=== PATIENT | female | born 1945 | race Caucasian/White ===

== ENCOUNTER 2017-12-03 09:44 | Inpatient (IN) | payer MEDICARE, MEDICAID ==
[~2017-12-03] VITALS: Ht 152.4 cm; Wt 87.1 kg
[~2017-12-03 09:44] MED LIST: ACIDOPHILUS1 EAC3 PO; ASPIR 8181 MG PO; ASPIRIN325 PO; ATIVAN0.5 MG PO; AUGMENTIN 500-1 EACH PO; CALMOSEPTINE O3.5 GM TP; CARDIZEM CD120 MG PO; COZAAR 50 MG TA50 M2 PO; DOXYCYCLINE 10100 MG PO; FOSAMAX 70 MG T70 MG PO; GLUCOSAMINE HC500 MG PO; HYDROCODONE-AP1 EAC6 PO; IBUPROFEN 200200 M1 PO; LABETALOL 100100 MG PO; LASIX 40 MG TAB40 M2 PO; LORATADINE10 M1 PO; MELATONIN3 MG PO; MINOCIN100 MG PO; MULTI VITAMIN1 EACH PO; NYAMYC15 GM TOP; PEPCID20 MG PO; PLAVIX 75 MG TA75 M1 PO; SYNTHROID100 MC1 PO; TESSALON PERLE100 MG PO; TRAMADOL 50 MG50 MG PO; TYLENOL325 MG PO; ZINC OXIDE56.7 GM TOP
[2017-12-03 09:46] VITALS: BP 151/84
[2017-12-03 10:06] LABS: HEMATOCRIT 37.6 % (37.0-47.0); HEMOGLOBIN 11.9 gm/dL (12.0-15.0); MCH 25.8 pg (26.0-34.0); MCHC 31.7 g/dL (28.0-37.0); MCV 81.3 fL (80.0-100.0); MPV 7.9 fl. (7.2-11.1); NUCLEATED RBCS 0 /100WBC; PLATELET COUNT* 331 thou/uL (150-400); RBC 4.63 mil/uL (4.20-5.00); RDW-CV 17.4 % (10.5-14.5)
[2017-12-03 10:15] LABS: CREATININE 0.8 mg/dL (0.6-1.3)
[2017-12-03 10:16] LABS: APTT 34.8 Seconds (25.0-31.3); INR 1.2; PROTIME 11.3 Seconds (9.20-11.50)
[2017-12-03 10:17] LABS: POTASSIUM 2.8 mmol/L (3.5-5.1)
[2017-12-03 10:19] LABS: ALBUMIN 2.3 g/dL (3.4-5.0); TOTAL BILIRUBIN 0.4 mg/dL (<0.1-1.0); TOTAL PROTEIN 7.6 g/dL (6.4-8.2)
[2017-12-03 10:36] LABS: ABSOLUTE LYMPHOCYTES 0.9 thou/uL (0.8-5.3); ABSOLUTE MONOCYTES 1.2 thou/uL (0.0-1.2); ABSOLUTE NEUTROPHILS 10.9 thou/uL (1.6-8.1); ANISOCYTOSIS 1+; OVALOCYTES Occasional; PLATELET ESTIMATE ADEQUATE; POIKILOCYTOSIS 1+
[2017-12-03 12:45] VITALS: BP 125/86
[2017-12-03 13:35] VITALS: BP 140/78
--- NOTE | 2017-12-03 15:11 | EKG ---
[place] [address] ELECTROCARDIOGRAM REPORT Name: CHEPE COLON Room: [address] ADM IN [facility]#: [id number] Admission: 12/03/17 Attend Phys: Jesu Araujo MD Discharge: Date of : 43 Report #: [id number] THIS REPORT FOR: //name// [facility] ED Test Date: 2017-12-03 Test Time: 10:02:08 Pat Name: CHEPE COLON Department: Room: [facility] Gender: F Discharge Rn: ALEXIS Mosher : 1945 Requested By: Denys Remy Order Number: [id number] MD: Juma Benítez Measurements Intervals [place] Rate: 86 P: -5 ND: 178 QRS: -4 QRSD: 103 T: 26 QT: 411 QTc: 492 Interpretive Statements Sinus rhythm Atrial premature complex anterior infarct, old Compared to ECG 09/04/2016 23:51:52 Atrial premature complex(es) now present Electronically Signed On 12-03-2017 15:11:33 CDT by Juma Benítez [email or web address] <ELECTRONICALLY SIGNED> By: Juma Benítez MD, FACC 12/03/17 1511 1002 1002 Juma Benítez MD, [facility] /EPI
[2017-12-03 16:12] VITALS: BP 127/48
--- NOTE | 2017-12-03 18:32 | NUR ---
PATIENT ARRIVED FROM ER THIS AFTERNOON. PATIENT SETTLED TO ROOM AND HISTORY, ASSESSMENT AND VITALS COMPLETED AND DOCUMENTED. PHOTOS TAKEN OF CELLULITIS. PATIENT HAS COMPLAINTS OF PAIN, TREATED ADEQUATELY WITH MEDICATION AND REPOSITIONING. PATIENT HAS GOOD APPETITE. PATIENT DENIES ANY NEEDS AT THIS TIME. CALL LIGHT WITHIN REACH. WILL CONTINUE TO MONITOR.
[2017-12-03 19:35] VITALS: BP 114/64
[2017-12-04 04:42] LABS: ABSOLUTE EOSINOPHILS 0.1 thou/uL (0.0-0.7); ABSOLUTE LYMPHOCYTES 1.1 thou/uL (0.8-5.3); ABSOLUTE NEUTROPHILS 6.3 thou/uL (1.6-8.1); BASOPHILS 0.6 %; EOSINOPHILS 1.6 %; HEMATOCRIT 29.5 % (37.0-47.0); LYMPHOCYTES 12.9 %; MCH 26.4 pg (26.0-34.0); MCHC 33.1 g/dL (28.0-37.0); MCV 79.9 fL (80.0-100.0); MONOCYTES 11.1 %; MPV 8.2 fl. (7.2-11.1); NUCLEATED RBCS 0 /100WBC; PLATELET COUNT* 289 thou/uL (150-400); POLYS 73.8 %; RBC 3.69 mil/uL (4.20-5.00); RDW-CV 16.9 % (10.5-14.5); WBC 8.6 thou/uL (4.0-11.0)
[2017-12-04 05:03] LABS: HEMOGLOBIN 9.8 gm/dL (12.0-15.0)
[2017-12-04 05:06] LABS: CALCIUM 8.5 mg/dL (8.5-10.1); CREATININE 0.7 mg/dL (0.6-1.3); POTASSIUM 3.7 mmol/L (3.5-5.1)
--- NOTE | 2017-12-04 05:16 | NUR ---
ASSESSMENT COMPLETE. PT SLEPT THROUGH THE NIGHT WIHTOUT ANY CONCERNS. PT DENIES NEED FOR PAIN MEDICATION AT THIS TIME. PT TURNED Q2 FOR SKIN INTEGRITY. BLE ELEVATED WITH PILLOWS. PT INCONT OF BOWEL AND BLADDER. K+ REPLACED AND IS NOW 3.7. PT IS ON ROOM AIR WITH ADEQAUTE SATS. IV IN LEFT AC, SALINE LOCKED AND FLUSHES WITHOUT DIFFICULTY. SEE ASSESSMENT AND VITALS FOR OTHER DETAILS. CALL LIGHT WITHIN REACH, WILL CONTINUE PLAN OF CARE
[2017-12-04 07:50] VITALS: BP 110/54
--- NOTE | 2017-12-04 10:26 | NUR ---
SW met with pt to complete initial assessment, introduce self, and SW role. Pt alert, oriented, pleasant. Pt reports she is feeling better today. Pt lives at [facility] and pt says that she loves living there. Pt said she has a wc and everything she would need there. SW called and spoke with Verena at [facility] who can accept pt back when pt ready to dc. SW to continue to follow to assist with safe dc planning.
--- NOTE | 2017-12-04 13:07 | CON ---
[address] [address] CONSULTATION Name: CHEPE COLON Room: [address] IN [facility].#: [id number] Admission: 12/03/17 Attend Phys: Jesu Araujo MD Discharge: Date of : 43 Report #: [id number] THIS REPORT FOR: //name// CC: Jesu Mcgarry DATE OF SERVICE: 12/03/2017 INFECTIOUS DISEASE CONSULTATION ATTENDING PHYSICIAN: Jesu Araujo M.D. REASON FOR EVALUATION: Right lower extremity inflammatory eruption, likely a component of skin and soft tissue infection with cellulitis. HISTORY OF PRESENT ILLNESS: Chart reviewed, patient examined. This is a 72-year-old whom I have met previously and admitted, has bilateral lower extremity venous stasis insufficiency complicated by dermatitis. She has certainly decreased mobility, apparently had onset without antecedent injury of increasing pain associated with the sides, particularly right side, had a newer thigh inflammatory rash, it is not clear if she has had fevers. Did admit to chills and shakes, progressive weakness. Denies significant pulmonary or gastrointestinal related complaints, although has had some anorexia. She was empirically started on vancomycin. ALLERGIES: SULFA AND METOPROLOL. CURRENT MEDICATIONS: Include aspirin, glucosamine, furosemide, levothyroxine, pantoprazole, vancomycin, melatonin, famotidine, rivaroxaban, benzonatate, tramadol. PAST MEDICAL HISTORY: Includes hypertension, cardiomyopathy with history of congestive heart failure, hypothyroidism, reflux, history of venous stasis insufficiency of lower extremities with dermatitis, also perhaps a component of lymphedema, history of lower extremity-related ulcers. SOCIAL HISTORY: Nonsmoker, no ethanol. FAMILY HISTORY: Noncontributory. REVIEW OF SYSTEMS: As above. PHYSICAL EXAMINATION: GENERAL: She appears chronically ill, undernourished, although she is obese, very limited mobility. VITAL SIGNS: Temperature 97.8, pulse 99, respirations 15, blood pressure is [facility] [address] [place] [address] CONSULTATION Name: CHEPE COLON Room: [address]#: [id number] Admission: 12/03/17 Attend Phys: Jesu Araujo MD Discharge: Date of : 43 Report #: [id number] 125/86. SKIN: Warm, dry, no rashes. HEENT: Unremarkable. NECK: Supple. LUNGS: Diminished, otherwise clear. HEART: Regular, has a soft systolic murmur. ABDOMEN: Obese, soft, nontender. EXTREMITIES: Bilateral lower extremities have kind of reddish purple distal lower extremities consistent with venous stasis insufficiency and dermopathy areas, component of cellulitis as well in the thigh in particular that is tender. There are no fluctuations, no bullous lesions. No subcutaneous inflammatory masses. GENITOURINARY: Deferred. RECTAL: Deferred. LABORATORY DATA: Venous Doppler of lower extremity showed no evidence of DVT bilaterally. Lactic acid 1.6. White count of 13.0, H and H 11.9 and 37.6, platelets of 331. Electrolytes: Sodium 141, potassium 2.8, chloride 100, bicarbonate is 33, BUN and creatinine 14 and 0.8, anion gap of 8. LFTs unremarkable for an elevated alkaline phosphatase of 127, total protein 76, albumin of 2.3, estimated GFR of 70. PT of 1.3, INR of 1.2. ASSESSMENT: Lower extremity inflammatory eruption, likely multifactorial including skin and soft tissue infection, specifically cellulitis. PLAN: We will continue vancomycin and elevation; at this point, I think given the severity of the pain, it is unlikely she can tolerate compression which she was certain as well. We will see if we can improve the overall degree of inflammation. I did at some point add compression, go and do arterial studies in the interim. <ELECTRONICALLY SIGNED> By: Waylon Alvares MD 12/04/17 1307 1528 1751Jojosé miguel Alvares MD /nt
[2017-12-04 16:14] VITALS: BP 139/73
--- NOTE | 2017-12-04 18:35 | NUR ---
PATIENT RESTING IN BED. PATIENT REPOSITIONED IN BED. BLE ARE EDEMATOUS AND RED, ELEVATED ON PILLOWS. PATIENT HAS HAD COMPLAINTS OF PAIN X 1 TREATED ADEQUATELY WITH TRAMADOL. PATIENT HAS FAIR APPETITE. NEW IV PALCED THIS EVENING. PATIENT DENIES ANY NEEDS AT THIS TIME. CALL LIGHT WITHIN REACH. WILL CONTINUE TO MONITOR.
[2017-12-04 20:00] VITALS: BP 106/51
--- NOTE | 2017-12-05 05:06 | NUR ---
PT SLEPT AT INTERVALS DURING THE NIGHT, IV VANC GIVEN, PLEASANT, PRN PAIN MEDS PER REQUEST, RIGHT THIGH RED AND WARM, PLEASANT, TURNED, URINARY INCONTINENCE, CALL LIGHT IN REACH, BED ALARM ON FOR SAFETY, WILL CONTINUE TO MONITOR
[2017-12-05 09:15] VITALS: BP 102/45
[2017-12-05 11:12] VITALS: BP 102/45
--- NOTE | 2017-12-05 11:13 | NUR ---
Pt to dc home to [facility] today. JUAN called [facility] and arranged for ride at 1300. JUAN faxed final orders and med list to [facility] fax number [phone]. Pt nurse aware. No other needs expressed.
[2017-12-05 12:20] VITALS: BP 102/45
[2017-12-05] MEDS ORDERED: XARELTO15 MG PO (12:24)
[2017-12-05 13:20] VITALS: BP 102/45
--- NOTE | 2017-12-05 13:22 | NUR ---
PATIENT HAS BEEN ALERT AND ORIENTED TIMES 3 TODAY VERY PLEASANT. NO COMPLAINTS OF ANY PAIN TODAY. VITAL SIGNS STABLE ON ROOM AIR. PATIENT IS BEING DISCAHRGED BACK TO THE CARE HOME TODAY. PHOTOS TAKEN AND DISCHARGE INSTRUCTIONS GIVEN TO JOB CHANGE CREW MEMBER.
== END 2017-12-05 13:25 | DRG 872 ==
LOC: M.ERS 09:44 → M.3W 11:18 → M.TBA-ER 11:18 → M.3W 13:20
PROVIDERS: Family Medicine; ADMIT Internal Medicine
DX: A41.9 Sepsis, unspecified organism (principal); L03.115 Cellulitis of right lower limb; I82.5Y2 Chronic embolism and thrombosis of unspecified deep veins of left proximal lower extremity; E44.1 Mild protein-calorie malnutrition; I42.9 Cardiomyopathy, unspecified; I50.9 Heart failure, unspecified; E03.9 Hypothyroidism, unspecified; I89.0 Lymphedema, not elsewhere classified; E87.6 Hypokalemia; E66.01 Morbid (severe) obesity due to excess calories; E88.09 Other disorders of plasma-protein metabolism, not elsewhere classified; K21.9 Gastro-esophageal reflux disease without esophagitis; Z88.2 Allergy status to sulfonamides; Z88.8 Allergy status to other drugs, medicaments and biological substances; Z68.37 Body mass index [BMI] 37.0-37.9, adult; Z79.82 Long term (current) use of aspirin; Z79.899 Other long term (current) drug therapy; Z79.01 Long term (current) use of anticoagulants

== ENCOUNTER 2018-03-20 11:30 | Inpatient (IN) | payer MEDICARE, MEDICAID ==
[~2018-03-20] VITALS: Ht 160 cm; Wt 93.0 kg
[~2018-03-20 11:30] MED LIST changes: +XARELTO15 MG PO
[2018-03-20 11:31] VITALS: BP 109/73
[2018-03-20] MEDS ORDERED: VITAMIN A & D113 G1 TOP (11:34)
[2018-03-20 12:02] LABS: ABSOLUTE EOSINOPHILS 0.1 thou/uL (0.0-0.7); ABSOLUTE MONOCYTES 0.7 thou/uL (0.0-1.2); ABSOLUTE NEUTROPHILS 5.1 thou/uL (1.6-8.1); BASOPHILS 0.7 %; EOSINOPHILS 1.4 %; HEMATOCRIT 22.4 % (37.0-47.0); HEMOGLOBIN 7.2 gm/dL (12.0-15.0); LYMPHOCYTES 13.8 %; MCH 27.1 pg (26.0-34.0); MCV 84.6 fL (80.0-100.0); MONOCYTES 10.6 %; MPV 7.5 fl. (7.2-11.1); NUCLEATED RBCS 0 /100WBC; PLATELET COUNT* 459 thou/uL (150-400); POLYS 73.5 %; RBC 2.65 mil/uL (4.20-5.00); RDW-CV 19.7 % (10.5-14.5); WBC 6.9 thou/uL (4.0-11.0)
[2018-03-20 12:08] LABS: CALCIUM 8.3 mg/dL (8.5-10.1); CREATININE 0.6 mg/dL (0.6-1.3); POTASSIUM 3.8 mmol/L (3.5-5.1)
[2018-03-20 12:10] LABS: APTT 46.5 Seconds (25.0-31.3); INR 1.4; PROTIME 13.2 Seconds (9.20-11.50)
[2018-03-20 12:13] LABS: ALBUMIN 2.4 g/dL (3.4-5.0)
--- NOTE | 2018-03-20 16:08 | NUR ---
RECEIVED REPORT FOR E.D. PER RILEY AT 1602. PT RESTING IN E.D. WITH NEICE/DPOA. PT ACUTE BILATERALY LEG EDEMA AND DX. OF ANEMIA. WAITING ON PT TRANSFER AT THIS TIME.
--- NOTE | 2018-03-20 16:26 | EKG ---
[place] [address] ELECTROCARDIOGRAM REPORT Name: CHEPE COLON Room: [address] IN [facility]#: [id number] Admission: 03/20/18 Attend Phys: Blue Roman MD Discharge: Date of : 43 Report #: [id number] THIS REPORT FOR: //name// [facility] ED Test Date: 2018-03-20 Test Time: 12:01:17 Pat Name: CHEPE COLON Department: Room: Gender: Inside Sales Lead: Vidhi NELSON : 1945 Requested By: Keke Chow Order Number: [id number] MD: Juma Benítez Measurements Intervals [place] Rate: 73 P: 21 AR: 169 QRS: -9 QRSD: 107 T: 23 QT: 420 QTc: 463 Interpretive Statements Sinus rhythm poor r wave progression consider Inferior infarct, old Compared to ECG 12/03/2017 10:02:08 Atrial premature complex(es) no longer present Myocardial infarct finding still present Electronically Signed On 03-20-2018 16:25:53 CDT by Juma Benítez [email or web address] <ELECTRONICALLY SIGNED> By: Juma Benítez MD, [facility] 03/20/18 1625 1201 1201 Juma Benítez MD, [facility] /EPI
[2018-03-20 16:32] VITALS: BP 105/71
[2018-03-20 17:00] VITALS: BP 145/77
--- NOTE | 2018-03-20 20:30 | NUR ---
REPORT TO AUTOMOTIVE MECHANICAL ENGINEER FOR CONTINUED CARES. PT IN BED, BED IN LOW LOCKED POSITION. VSS. Q2 TURNS COMPLETED. A&O X4, SOMETIMES FORGETFUL, HRRR PER AUSCULTATION, LCTAB, PERRLA, AFEBRILE. PICTURES OF LEG WOUNDS COMPLETED AND IN CHART. BILATERAL LE EDEMA, PT NON AMBULATORY, WHEELCHAIR AT SNF. DNR. LAC 18 GAUGE IV PATENT TO FLUSH. PT ARRIVED TO FLOOR AT 1628, ADMISSION COMPLETED. HOURLY ROUNDING COMPLETED. PT USES BEDPAN AT THIS TIME.
[2018-03-21 00:24] VITALS: BP 111/44
[2018-03-21 04:54] LABS: HEMOGLOBIN 5.8 gm/dL (12.0-15.0)
[2018-03-21 04:56] LABS: HEMATOCRIT 18.4 % (37.0-47.0)
--- NOTE | 2018-03-21 05:09 | NUR ---
PT SLEPT SOUNDLY DURING THE NIGHT, PT TURNED Q2 HOURS, URINARY INCONTINENCE, ROOM AIR, LEFT LEG KALINA WRAPPED ORDERED AND BLE ELEVATED ON PILLOWS, DRSG REMAINS C/D/I TO RLE, PT PLEASANT, PRN TYLENOL AT HS, CALL LIGHT IN REACH, BED ALARM ON FOR SAFETY, WILL CONTINUE TO MONITOR
[2018-03-21 05:31] LABS: HEMATOCRIT 19.9 % (37.0-47.0); HEMOGLOBIN 6.2 gm/dL (12.0-15.0)
[2018-03-21 06:47] VITALS: BP 116/51; BP 117/59; BP 121/61
[2018-03-21 07:55] VITALS: BP 121/61
--- NOTE | 2018-03-21 10:17 | NUR ---
MET WITH PT TO DISCUSS HOME SITUATION/DC PLANNING. 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 PLANS TO RETURN AT DC. PT IS MOSTLY W/C BOUND. COPY OF OUTSIDE DNR TO CHART. NIECE FLORES ARGUELLO LISTED DPOA. WILL FOLLOW [facility] [phone] FAX [phone]
[2018-03-21 16:36] VITALS: BP 112/49
--- NOTE | 2018-03-21 17:52 | NUR ---
PATIENT HAS BEEN A/O X 4 THIS SHIFT. MEDICATED FOR LEFT LEG PAIN X 1 THIS AM WITH GOOD RELIEF. IV SALINE LOCKED, TOLERATED BLOOD TRANSFUSION THIS AM WITHOUT ANY ADVERSE REACTIONS. PATIENT TURNED EVERY 2 HOURS AND ALAINA-CARE PROVIDED WITH EACH INCONTINENCE EPISODE. DRESSING TO RIGHT LOWER LEG INTACT, REFUSED DRESSING CHANGE. KALINA WRAP CONTINUES TO LEFT THIGH. APPETITE GOOD. TO HAVE REPEAT LABS IN AM. HOURLY ROUNDING COMPLETED. CALL LIGHT WITHIN REACH. WILL CONTINUE WITH PLAN OF CARE.
[2018-03-21 20:30] VITALS: BP 114/49
[2018-03-22 04:04] LABS: MCH 27.3 pg (26.0-34.0); MCHC 31.7 g/dL (28.0-37.0); MCV 86.1 fL (80.0-100.0); MPV 7.6 fl. (7.2-11.1); RBC 2.28 mil/uL (4.20-5.00); RDW-CV 19.5 % (10.5-14.5); WBC 5.6 thou/uL (4.0-11.0)
[2018-03-22 04:32] LABS: HEMOGLOBIN 6.2 gm/dL (12.0-15.0)
[2018-03-22 04:33] LABS: HEMATOCRIT 19.6 % (37.0-47.0)
[2018-03-22 06:46] VITALS: BP 118/51; BP 126/55; BP 131/60; BP 137/65
[2018-03-22 08:00] VITALS: BP 137/65
--- NOTE | 2018-03-22 08:13 | NUR ---
Alert and oriented x 4 but withdrawn. She is incontinent of urine frquently. She has been turned every 2 hours. Vitals stable. Pain med x 1. This am critical hemoglobin called and orders recieved. She has slept well.
[2018-03-22 10:44] LABS: HEMATOCRIT 24.8 % (37.0-47.0); HEMOGLOBIN 7.9 gm/dL (12.0-15.0)
[2018-03-22 16:00] VITALS: BP 115/55
[2018-03-22 16:04] LABS: HEMOGLOBIN 7.7 gm/dL (12.0-15.0)
--- NOTE | 2018-03-22 18:24 | NUR ---
PATIENT HAS BEEN A/O X 4 THIS SHIFT, FORGETFUL AT TIMES. PATIENT RECEIVED 1 UNIT OF PRBC THIS SHIFT, REPEAT H/H STABLE. HEMOGLOBIN TRENDING UP. PATIENT TITRATED BACK TO ROOM AIR. PATIENT INCONTINENT OF URINE. TURNED EVERY 2 HOURS AND HEELS ELEVATED. PATIENT'S DRESSING TO RLE CHANGED AND WEEKLY PICTURES OBTAINED. PATIENT'S KALINA WRAP REAPPLIED TO LEFT LEG TO HELP WITH SWELLING. PATIENT HOPEFUL TO BE DISCHARGED SOON. HOURLY ROUNDING COMPLETED. CALL LIGHT WITHIN REACH. WILL CONTINUE WITH PLAN OF CARE.
[2018-03-22 20:00] VITALS: BP 124/50
[2018-03-23 04:21] LABS: HEMATOCRIT 26.2 % (37.0-47.0); HEMOGLOBIN 8.4 gm/dL (12.0-15.0); MCH 27.9 pg (26.0-34.0); MCV 87.1 fL (80.0-100.0); MPV 7.6 fl. (7.2-11.1); RDW-CV 19.1 % (10.5-14.5); WBC 5.5 thou/uL (4.0-11.0)
[2018-03-23 04:39] LABS: CALCIUM 8.4 mg/dL (8.5-10.1); CREATININE 0.6 mg/dL (0.6-1.3); MAGNESIUM 2.1 mg/dL (1.8-2.4)
--- NOTE | 2018-03-23 06:56 | NUR ---
Alert and oriented x 4. She has gauze dressing that is dry and intact on RLE. LLE has acewrap dressing dry and intact. She's been turned every 2 hours and she's incontinent of bowel and bladder. She had pain meds x 2. She slept well.
[2018-03-23 08:00] VITALS: BP 140/69
--- NOTE | 2018-03-23 10:56 | NUR ---
Pt to dc home to [facility] today. JUAN called and spoke with [facility] [phone] who is prepared to accept pt home. JUAN faxed dc orders/summary to [facility] at fax [phone]. Transportation scheduled for 14:00. JUAN called pt andrea Rivas Juventino at [phone] who did not answer so JUAN left a detailed message regarding pt dc and encouraged call back with any questions or needs.
[2018-03-23 11:36] VITALS: BP 140/69
--- NOTE | 2018-03-23 14:18 | NUR ---
DISCHARGE NOTE - PT DC'ED BACK TO [facility]. REPORT CALLED TO LUIS LAMAS. NO QUESTIONS. BELONGINGS AND GLASSES SENT WITH PT. CHART COPIED AND SENT WITH TRANSPORTER.
== END 2018-03-23 14:17 | DRG 605 ==
LOC: M.ERS 11:30 → M.ORTHSURG 15:06 → M.TBA-ER 15:06 → M.ORTHSURG 17:03
PROVIDERS: Nurse Practitioner Family; ADMIT Internal Medicine
PROC: 30233N1 Transfusion of Nonautologous Red Blood Cells into Peripheral Vein, Percutaneous Approach (ICD-10-PCS; principal; 2018-03-21)
DX: S80.12XA Contusion of left lower leg, initial encounter (principal); D62 Acute posthemorrhagic anemia; I50.32 Chronic diastolic (congestive) heart failure; E44.0 Moderate protein-calorie malnutrition; E03.9 Hypothyroidism, unspecified; K21.9 Gastro-esophageal reflux disease without esophagitis; M81.0 Age-related osteoporosis without current pathological fracture; I87.8 Other specified disorders of veins; E66.9 Obesity, unspecified; Z66 Do not resuscitate; G89.29 Other chronic pain; Z88.2 Allergy status to sulfonamides; Z88.8 Allergy status to other drugs, medicaments and biological substances; Z79.01 Long term (current) use of anticoagulants; Z86.718 Personal history of other venous thrombosis and embolism; Z68.36 Body mass index [BMI] 36.0-36.9, adult; Z79.82 Long term (current) use of aspirin; Z79.899 Other long term (current) drug therapy; X58.XXXA Exposure to other specified factors, initial encounter; Y93.89 Activity, other specified; Y92.89 Other specified places as the place of occurrence of the external cause; Y99.8 Other external cause status

== ENCOUNTER 2018-04-10 07:41 | Inpatient (IN) | payer MEDICARE, MEDICAID ==
[~2018-04-10] VITALS: Ht 157.5 cm; Wt 94.8 kg
[~2018-04-10 07:41] MED LIST changes: +VITAMIN A & D113 G1 TOP
[2018-04-10 07:42] VITALS: BP 103/39
[2018-04-10] MEDS ORDERED: NYAMYC15 GM TOP (07:51)
[2018-04-10] MEDS ORDERED: IRON325 PO (07:52)
[2018-04-10] MEDS ORDERED: TESSALON PERLE100 MG PO (07:53)
[2018-04-10] MEDS ORDERED: SENNA S TABLET1 EACH PO (07:53)
[2018-04-10 08:28] LABS: HEMATOCRIT 27.1 % (37.0-47.0); HEMOGLOBIN 8.5 gm/dL (12.0-15.0); MCH 25.9 pg (26.0-34.0); MCHC 31.3 g/dL (28.0-37.0); MCV 82.9 fL (80.0-100.0); MPV 7.7 fl. (7.2-11.1); NUCLEATED RBCS 0 /100WBC; PLATELET COUNT* 367 thou/uL (150-400); RBC 3.27 mil/uL (4.20-5.00); RDW-CV 19.1 % (10.5-14.5); WBC 8.7 thou/uL (4.0-11.0)
[2018-04-10 08:33] LABS: CALCIUM 8.1 mg/dL (8.5-10.1); CREATININE 0.6 mg/dL (0.6-1.3); POTASSIUM 3.6 mmol/L (3.5-5.1)
[2018-04-10 08:37] LABS: ALBUMIN 1.7 g/dL (3.4-5.0); TOTAL BILIRUBIN 0.3 mg/dL (<0.1-1.0); TOTAL PROTEIN 6.2 g/dL (6.4-8.2)
[2018-04-10 08:53] LABS: ABSOLUTE LYMPHOCYTES 1.5 thou/uL (0.8-5.3); ABSOLUTE MONOCYTES 0.2 thou/uL (0.0-1.2); PLATELET ESTIMATE ADEQUATE
[2018-04-10 08:54] LABS: ANISOCYTOSIS 1+; POIKILOCYTOSIS 1+
[2018-04-10 09:32] VITALS: BP 101/56
[2018-04-10 09:45] VITALS: BP 125/48
--- NOTE | 2018-04-10 16:31 | EKG ---
[place] [address] ELECTROCARDIOGRAM REPORT Name: CHEPE COLON Room: [address] ADM IN [facility]#: [id number] Admission: 04/10/18 Attend Phys: Scott Torres Discharge: Date of : 43 Report #: [id number] THIS REPORT FOR: //name// [facility] ED Test Date: 2018-04-10 Test Time: 08:17:33 Pat Name: CHEPE COLON Department: Room: [facility] Gender: F Developer Prover Upholstering: BAILEE : 1945 Requested By: Tera Thurston Order Number: [id number] MD: Gasper Simmons Measurements Intervals [place] Rate: 72 P: 5 RI: 170 QRS: -14 QRSD: 98 T: 8 QT: 417 QTc: 457 Interpretive Statements Sinus rhythm Immature atrial complexes Inferior infarct, old Baseline wander in lead(s) V1 Compared to ECG 03/20/2018 12:01:17 Poor R-wave progression no longer present Myocardial infarct finding still present Electronically Signed On 04-10-2018 16:31:42 CDT by Gasper Simmons [email or web address] <ELECTRONICALLY SIGNED> By: Gasper Simmons MD, FACC 04/10/18 1631 6 6 Gasper Simmons MD, FAC /EPI
[2018-04-10 17:01] VITALS: BP 141/59
[2018-04-11] VITALS: BP 113/56
[2018-04-11 04:18] LABS: ABSOLUTE EOSINOPHILS 0.2 thou/uL (0.0-0.7); ABSOLUTE LYMPHOCYTES 1.2 thou/uL (0.8-5.3); ABSOLUTE MONOCYTES 0.8 thou/uL (0.0-1.2); ABSOLUTE NEUTROPHILS 4.2 thou/uL (1.6-8.1); BASOPHILS 0.5 %; EOSINOPHILS 2.5 %; HEMATOCRIT 26.6 % (37.0-47.0); HEMOGLOBIN 8.2 gm/dL (12.0-15.0); LYMPHOCYTES 18.4 %; MCH 25.7 pg (26.0-34.0); MCHC 30.9 g/dL (28.0-37.0); MCV 83.2 fL (80.0-100.0); MPV 7.8 fl. (7.2-11.1); NUCLEATED RBCS 0 /100WBC; PLATELET COUNT* 364 thou/uL (150-400); POLYS 66.6 %; RDW-CV 18.9 % (10.5-14.5); WBC 6.3 thou/uL (4.0-11.0)
[2018-04-11 04:24] LABS: CALCIUM 7.8 mg/dL (8.5-10.1); CREATININE 0.6 mg/dL (0.6-1.3); POTASSIUM 3.6 mmol/L (3.5-5.1)
[2018-04-11 12:04] VITALS: BP 155/79
[2018-04-11 16:00] VITALS: BP 103/40
[2018-04-11 20:30] VITALS: BP 126/62
[2018-04-12 05:17] LABS: HEMATOCRIT 26.1 % (37.0-47.0); HEMOGLOBIN 8.2 gm/dL (12.0-15.0); MCH 25.8 pg (26.0-34.0); MCHC 31.6 g/dL (28.0-37.0); MCV 81.7 fL (80.0-100.0); MPV 7.9 fl. (7.2-11.1); RBC 3.19 mil/uL (4.20-5.00); WBC 5.4 thou/uL (4.0-11.0)
[2018-04-12 05:37] LABS: CALCIUM 7.9 mg/dL (8.5-10.1); CREATININE 0.5 mg/dL (0.6-1.3)
[2018-04-12 08:56] VITALS: BP 149/76
[2018-04-12 15:51] VITALS: BP 130/68
[2018-04-12 21:00] VITALS: BP 128/67
[2018-04-13 10:20] VITALS: BP 118/82
[2018-04-13] MEDS ORDERED: AUGMENTIN 875-1 EACH PO (12:25)
[2018-04-13 12:27] VITALS: BP 118/82
[2018-04-13 14:13] VITALS: BP 118/82
== END 2018-04-13 14:32 | DRG 579 ==
LOC: M.ERS 07:41 → M.3W 08:26 → M.TBA-ER 08:26 → M.3W 09:39
PROVIDERS: Emergency Medicine; Internal Medicine; Surgery; ADMIT Internal Medicine
PROC: 0J9M0ZZ Drainage of Left Upper Leg Subcutaneous Tissue and Fascia, Open Approach (ICD-10-PCS; principal; 2018-04-11)
DX: L03.116 Cellulitis of left lower limb (principal); G93.40 Encephalopathy, unspecified; M62.82 Rhabdomyolysis; M86.9 Osteomyelitis, unspecified; G89.29 Other chronic pain; I87.8 Other specified disorders of veins; M46.40 Discitis, unspecified, site unspecified; D64.9 Anemia, unspecified; I11.0 Hypertensive heart disease with heart failure; I50.9 Heart failure, unspecified; K21.9 Gastro-esophageal reflux disease without esophagitis; M81.0 Age-related osteoporosis without current pathological fracture; E03.9 Hypothyroidism, unspecified; F03.90 Unspecified dementia, unspecified severity, without behavioral disturbance, psychotic disturbance, mood disturbance, and anxiety; L02.416 Cutaneous abscess of left lower limb; Z86.718 Personal history of other venous thrombosis and embolism; Z79.01 Long term (current) use of anticoagulants; Z99.3 Dependence on wheelchair; Z79.2 Long term (current) use of antibiotics; Z79.899 Other long term (current) drug therapy; Z79.82 Long term (current) use of aspirin; Z88.2 Allergy status to sulfonamides; Z88.6 Allergy status to analgesic agent; Z91.012 Allergy to eggs; Z91.040 Latex allergy status

== ENCOUNTER 2018-04-23 13:07 | Inpatient (IN) | payer MEDICARE, MEDICAID ==
[~2018-04-23] VITALS: Ht 154.9 cm; Wt 89.8 kg
[~2018-04-23 13:07] MED LIST changes: +AUGMENTIN 875-1 EACH PO; +IRON325 PO; +SENNA S TABLET1 EACH PO
[2018-04-23 13:36] LABS: ABSOLUTE BASOPHILS 0.1 thou/uL (0.0-0.2); ABSOLUTE EOSINOPHILS 0.1 thou/uL (0.0-0.7); ABSOLUTE LYMPHOCYTES 1.4 thou/uL (0.8-5.3); ABSOLUTE MONOCYTES 0.5 thou/uL (0.0-1.2); ABSOLUTE NEUTROPHILS 2.9 thou/uL (1.6-8.1); BASOPHILS 1.2 %; EOSINOPHILS 2.8 %; HEMOGLOBIN 10.8 gm/dL (12.0-15.0); LYMPHOCYTES 28.1 %; MCH 24.9 pg (26.0-34.0); MONOCYTES 10.3 %; MPV 7.3 fl. (7.2-11.1); NUCLEATED RBCS 0 /100WBC; PLATELET COUNT* 358 thou/uL (150-400); POLYS 57.6 %; RBC 4.34 mil/uL (4.20-5.00); RDW-CV 20.2 % (10.5-14.5)
[2018-04-23 13:47] LABS: CALCIUM 8.2 mg/dL (8.5-10.1); CREATININE 0.9 mg/dL (0.6-1.3); POTASSIUM 3.6 mmol/L (3.5-5.1)
[2018-04-23 13:48] LABS: APTT 27.4 Seconds (25.0-31.3); INR 1.1; PROTIME 10.9 Seconds (9.20-11.50)
[2018-04-23 13:52] LABS: ALBUMIN 2.8 g/dL (3.4-5.0); TOTAL BILIRUBIN 0.3 mg/dL (<0.1-1.0)
[2018-04-23 14:04] LABS: URINE BILIRUBIN NEGATIVE (Negative); URINE BLOOD NEGATIVE (Negative); URINE CLARITY CLEAR; URINE COLOR YELLOW; URINE GLUCOSE-RANDOM NEGATIVE (Negative); URINE KETONES NEGATIVE (Negative); URINE LEUKOCYTES-REFLEX NEGATIVE (Negative); URINE NITRITE-REFLEX NEGATIVE (Negative); URINE PROTEIN NEGATIVE (Negative); URINE UROBILINOGEN 0.2 E.U./dl (0.2-1.0)
[2018-04-23 14:05] LABS: ANISOCYTOSIS 2+; PLATELET ESTIMATE ADEQUATE
[2018-04-23] MEDS ORDERED: VITAMINC500 PO (14:08)
[2018-04-23] MEDS ORDERED: TESSALON PERLE100 MG PO ×2 (14:08→14:09)
[2018-04-23] MEDS ORDERED: LINEZOLID600 MG PO (14:09)
[2018-04-23 16:43] VITALS: BP 107/55
[2018-04-23 16:50] VITALS: BP 136/60
--- NOTE | 2018-04-23 17:42 | EKG ---
[place] [address] ELECTROCARDIOGRAM REPORT Name: CHEPE COLON Room: [address] ADM IN [facility]#: [id number] Admission: 04/23/18 Attend Phys: Joanne Hector MD Discharge: Date of : 43 Report #: [id number] THIS REPORT FOR: //name// [facility] ED Test Date: 2018-04-23 Test Time: 15:33:14 Pat Name: CHEPE COLON Department: Room: [facility] Gender: F Information Management Manager: PINKY : 1945 Requested By: Minoo Paulino Order Number: [id number] MD: Juma Benítez Measurements Intervals [place] Rate: 77 P: 1 UT: 194 QRS: 4 QRSD: 105 T: 23 QT: 420 QTc: 476 Interpretive Statements Sinus rhythm Borderline prolonged QT interval Baseline wander in lead(s) I,III,aVL Compared to ECG 04/10/2018 08:17:33 pac's no longer present Electronically Signed On 04-23-2018 17:42:33 CDT by Juma Benítez [email or web address] <ELECTRONICALLY SIGNED> By: Juma Benítez MD, [facility] 04/23/18 1742 1533 1533 Juma Benítez MD, [facility] /EPI
[2018-04-23 19:35] VITALS: BP 130/60
[2018-04-24 04:30] LABS: HEMATOCRIT 27.4 % (37.0-47.0); MCH 25.3 pg (26.0-34.0); MCV 81.7 fL (80.0-100.0); MPV 7.6 fl. (7.2-11.1); RBC 3.35 mil/uL (4.20-5.00); RDW-CV 20.2 % (10.5-14.5); WBC 4.5 thou/uL (4.0-11.0)
[2018-04-24 04:37] LABS: HEMOGLOBIN 8.5 gm/dL (12.0-15.0)
[2018-04-24 04:50] LABS: ALBUMIN 2.1 g/dL (3.4-5.0); CALCIUM 7.3 mg/dL (8.5-10.1); CREATININE 0.6 mg/dL (0.6-1.3); MAGNESIUM 1.8 mg/dL (1.8-2.4); POTASSIUM 3.5 mmol/L (3.5-5.1); TOTAL BILIRUBIN 0.2 mg/dL (<0.1-1.0); TOTAL PROTEIN 5.8 g/dL (6.4-8.2)
[2018-04-24 07:40] VITALS: BP 144/72
[2018-04-24 16:34] VITALS: BP 116/39
[2018-04-25] VITALS: BP 91/32
[2018-04-25 09:03] VITALS: BP 142/52
--- NOTE | 2018-04-25 10:44 | CON ---
[address] [address] CONSULTATION Name: CHEPE COLON Room: [address] IN ..#: [id number] Admission: 04/23/18 Attend Phys: Joanne Hector MD Discharge: Date of : 43 Report #: [id number] THIS REPORT FOR: //name// CC: Joanne Mcgarry DATE OF SERVICE: 04/24/2018 INFECTIOUS DISEASE CONSULTATION ATTENDING SURGEON: Dr. Hector. REASON FOR EVALUATION: Complicated skin and soft tissue infection, lateral aspect of the proximal left lower extremity, probable MRSA related skin and soft tissue infection with abscess. HISTORY OF PRESENT ILLNESS: Chart reviewed, patient examined. This is a 72-year-old whom I am familiar with having seen her in the hospital in 11/2017 for inflammatory eruption involving his right lower extremity. She probably has underlying venous stasis insufficiency with dermatitis. Apparently, she has developed a large hematoma as a result of a fall about mid-March, experienced some bloody purulent drainage, did undergo an incision and drainage of that site. Cultures eventually came back oxacillin-resistant Staph aureus. She was re-admitted yesterday with altered mental status, it is notable she has persistent pain and drainage from the lateral aspect of the left thigh. She was started empirically on therapy with vancomycin. She is somewhat more responsive today. ALLERGIES: LISTED TO TAPE, SULFA, METOPROLOL, AND LATEX. CURRENT MEDICATIONS: Include pantoprazole, ascorbic acid, ferrous sulfate, aspirin, furosemide, vancomycin, levothyroxine, enoxaparin, Lactobacillus, famotidine, tramadol. PAST MEDICAL HISTORY: Hypertension, history of congestive heart failure in a setting of cardiomyopathy, hypothyroidism, reflux, chronic venous stasis insufficiency with dermatitis, osteoporosis, and history of DVT. SOCIAL HISTORY: Nonsmoker, no ethanol. FAMILY HISTORY: Noncontributory. REVIEW OF SYSTEMS: Somewhat limited. She denies significant pulmonary or gastrointestinal related complaints at present. PHYSICAL EXAMINATION: [place] [address] CONSULTATION Name: CHEPE COLON Room: [address] IN [facility]#: [id number] Admission: 04/23/18 Attend Phys: Joanne Hector MD Discharge: Date of : 43 Report #: [id number] GENERAL: She is at least yltgik-go-ypoicbptmv encephalopathic. She does appear chronically ill and undernourished. She may have as noted above, some dementia. VITAL SIGNS: Temperature 99, pulse 82, respirations 18, blood pressure 144/72. NECK: Apparently supple. LUNGS: Diminished breath sounds. HEART: Regular, soft systolic murmur. ABDOMEN: Soft, nontender, nondistended. EXTREMITIES: Left lateral aspect of her thigh is tender. She has got moderate surface inflammation. There is draining sinus as well. I cannot express significant purulence or bloody drainage at this point. LABORATORY DATA: Blood cultures are sterile thus far. CTA PE protocol showed no evidence of infiltrates, could not adequately evaluate for pulmonary embolus, does have cholelithiasis, large gallstone in the neck of the gallbladder. Prealbumin 16. Electrolytes: Sodium 141, potassium 3.5, chloride 109, bicarbonate is 20, BUN and creatinine 14 and 0.6. Albumin of 21, total protein 5.8, estimated GFR of 98. CBC: White count 4.5, H and H 8.5 and 27.4, platelets of 247. Venous Doppler of lower extremity showed no evidence of DVT. Lactic acid 1.4. Chest x-ray: Cardiomegaly with heart failure. Urinalysis, unremarkable. D-dimer elevated at 2.39. ASSESSMENT: Likely skin and soft tissue infection site of previous infected hematoma post-evacuation. There have been repeat blood cultures and no abscess culture. We will go ahead and try to collect a sample, continue vancomycin for now. She apparently is improved from a mental status standpoint based on description of her admission. <ELECTRONICALLY SIGNED> By: Waylon Alvares MD 04/25/18 1044 1107 1854Jojosé miguel Alvares MD /nt
[2018-04-25 16:00] VITALS: BP 140/60
[2018-04-26] VITALS: BP 110/40
[2018-04-26 09:16] VITALS: BP 145/61
[2018-04-26 16:38] VITALS: BP 139/63
[2018-04-27 00:28] VITALS: BP 119/46
[2018-04-27 04:35] LABS: HEMATOCRIT 29.2 % (37.0-47.0); HEMOGLOBIN 9.3 gm/dL (12.0-15.0); MCH 25.4 pg (26.0-34.0); MCHC 31.7 g/dL (28.0-37.0); MCV 80.3 fL (80.0-100.0); MPV 7.6 fl. (7.2-11.1); RBC 3.64 mil/uL (4.20-5.00); RDW-CV 19.8 % (10.5-14.5); WBC 5.8 thou/uL (4.0-11.0)
[2018-04-27 04:48] LABS: CALCIUM 9.1 mg/dL (8.5-10.1); CREATININE 0.6 mg/dL (0.6-1.3); MAGNESIUM 1.9 mg/dL (1.8-2.4); POTASSIUM 3.7 mmol/L (3.5-5.1)
[2018-04-27 08:00] VITALS: BP 118/58
[2018-04-27] MEDS ORDERED: TRAMADOL 50 MG50 MG PO (09:44)
[2018-04-27 16:00] VITALS: BP 127/61
[2018-04-27 19:45] VITALS: BP 147/67
[2018-04-28 08:45] VITALS: BP 122/74
[2018-04-28 11:03] VITALS: BP 122/74
[2018-04-28] MEDS ORDERED: CEFDINIR300 MG PO (11:50)
== END 2018-04-28 16:00 | DRG 602 ==
LOC: M.ERS 13:07 → M.TBA-ER 15:51 → M.3W 15:51
PROVIDERS: Personal Emergency Response Attendant; ADMIT Internal Medicine
DX: L03.116 Cellulitis of left lower limb (principal); G92 Toxic encephalopathy; E44.0 Moderate protein-calorie malnutrition; I42.9 Cardiomyopathy, unspecified; L03.115 Cellulitis of right lower limb; F03.90 Unspecified dementia, unspecified severity, without behavioral disturbance, psychotic disturbance, mood disturbance, and anxiety; I50.9 Heart failure, unspecified; E03.9 Hypothyroidism, unspecified; I87.8 Other specified disorders of veins; L02.416 Cutaneous abscess of left lower limb; B95.62 Methicillin resistant Staphylococcus aureus infection as the cause of diseases classified elsewhere; K21.9 Gastro-esophageal reflux disease without esophagitis; M81.0 Age-related osteoporosis without current pathological fracture; Z86.718 Personal history of other venous thrombosis and embolism; Z79.82 Long term (current) use of aspirin; Z79.899 Other long term (current) drug therapy; Z91.012 Allergy to eggs; Z91.040 Latex allergy status; Z88.2 Allergy status to sulfonamides; Z88.8 Allergy status to other drugs, medicaments and biological substances; Z91.048 Other nonmedicinal substance allergy status

== ENCOUNTER → 2018-05-05 | Outpatient (CLI) | payer MEDICARE, MEDICAID ==
[~2018-05-05] MED LIST changes: +CEFDINIR300 MG PO; +LINEZOLID600 MG PO; +VITAMINC500 PO
== END ==
LOC: M.WC 10:00
DX: L98.491 Non-pressure chronic ulcer of skin of other sites limited to breakdown of skin (principal); E66.01 Morbid (severe) obesity due to excess calories; M81.0 Age-related osteoporosis without current pathological fracture; Z86.718 Personal history of other venous thrombosis and embolism; Z79.82 Long term (current) use of aspirin; Z68.35 Body mass index [BMI] 35.0-35.9, adult

== ENCOUNTER → 2018-05-12 | Outpatient (CLI) | payer MEDICARE, MEDICAID | LOC: M.WC 04:29 | DX: L02.416 Cutaneous abscess of left lower limb (principal); E66.01 Morbid (severe) obesity due to excess calories; M81.0 Age-related osteoporosis without current pathological fracture; Z87.01 Personal history of pneumonia (recurrent); Z86.718 Personal history of other venous thrombosis and embolism; Z68.35 Body mass index [BMI] 35.0-35.9, adult ==

== ENCOUNTER → 2018-05-19 | Outpatient (CLI) | payer MEDICARE, MEDICAID | LOC: M.WC 03:42 | DX: L02.416 Cutaneous abscess of left lower limb (principal); E66.3 Overweight; E66.01 Morbid (severe) obesity due to excess calories; M81.0 Age-related osteoporosis without current pathological fracture; Z87.01 Personal history of pneumonia (recurrent); Z86.718 Personal history of other venous thrombosis and embolism; Z68.35 Body mass index [BMI] 35.0-35.9, adult ==

== ENCOUNTER → 2019-01-15 | Outpatient (CLI) | payer MEDICARE, MEDICAID | LOC: M.RAD 09:36 | DX: R13.12 Dysphagia, oropharyngeal phase (principal) ==

== ENCOUNTER 2020-07-17 20:48 | Inpatient (IN) | payer MEDICARE, MEDICAID ==
[~2020-07-17] VITALS: Ht 157.5 cm; Wt 83.0 kg
[2020-07-17] MEDS ORDERED: HYDROCODON-ACE1 EAC7 (21:43)
[2020-07-17] MEDS ORDERED: PREVACID30 MG (21:43)
[2020-07-17] MEDS ORDERED: JEVITY 1.2 CAL237 ML (21:44)
[2020-07-17] MEDS ORDERED: OYSTER SHELL 51 EACH (21:44)
[2020-07-17] MEDS ORDERED: CIPRO500 M1 PER TUBE (21:45)
[2020-07-17] MEDS ORDERED: VISTARIL 25 MG25 M1 (21:45)
[2020-07-17] MEDS ORDERED: ZINC SULFATE220 MG (21:45)
[2020-07-17 21:53] LABS: ABSOLUTE BASOPHILS 0.1 thou/uL (0.0-0.2); ABSOLUTE EOSINOPHILS 0.1 thou/uL (0.0-0.7); ABSOLUTE LYMPHOCYTES 1.2 thou/uL (0.8-5.3); ABSOLUTE MONOCYTES 0.7 thou/uL (0.0-1.2); ABSOLUTE NEUTROPHILS 4.4 thou/uL (1.6-8.1); BASOPHILS 1.3 %; EOSINOPHILS 0.8 %; HEMATOCRIT 37.8 % (37.0-47.0); HEMOGLOBIN 12.2 gm/dL (12.0-15.0); LYMPHOCYTES 18.9 %; MCH 28.8 pg (26.0-34.0); MCHC 32.3 g/dL (28.0-37.0); MONOCYTES 11.5 %; MPV 8.3 fl. (7.2-11.1); NUCLEATED RBCS 0 /100WBC; PLATELET COUNT* 275 thou/uL (150-400); POLYS 67.5 %; RBC 4.24 mil/uL (4.20-5.00); RDW-CV 14.9 % (10.5-14.5); WBC 6.5 thou/uL (4.0-11.0)
[2020-07-17 21:59] LABS: CALCIUM 8.8 mg/dL (8.5-10.1); CREATININE 0.6 mg/dL (0.6-1.3)
[2020-07-17 22:15] LABS: ALBUMIN 2.2 g/dL (3.4-5.0); TOTAL BILIRUBIN 0.4 mg/dL (<0.1-1.0); TOTAL PROTEIN 6.6 g/dL (6.4-8.2)
[2020-07-18] VITALS (7 sets, daily range): BP systolic 105–123; BP diastolic 44–74
[2020-07-18 02:13] LABS: URINE BILIRUBIN NEGATIVE (Negative); URINE BLOOD NEGATIVE (Negative); URINE CLARITY CLEAR; URINE COLOR YELLOW; URINE GLUCOSE-RANDOM NEGATIVE (Negative); URINE KETONES NEGATIVE (Negative); URINE LEUKOCYTES-REFLEX NEGATIVE (Negative); URINE NITRITE-REFLEX NEGATIVE (Negative); URINE PROTEIN NEGATIVE (Negative)
--- NOTE | 2020-07-18 02:41 | NUR ---
PT BOARDING ASSESSMENT COMPLETED; PT NONVERBAL; SCHAEFER TO DD; PERICARE PROVIDED, NOTED NONBLANCHABLE AREA TO COCCYX, SMALL SOFT STOOL NOTED; PT REPOSITIONED ON L SIDE; COVID PRECAUTIONS MAINTAINED; WILL CONTINUE TO MONITOR.
--- NOTE | 2020-07-18 02:44 | NUR ---
PT WITH PEG TUBE, IRRIGATED WITH 50 ML H2O.
--- NOTE | 2020-07-18 09:36 | EKG ---
[place] [address] ELECTROCARDIOGRAM REPORT Name: CHEPE COLON Room: [address] ADM IN [facility].#: [id number] Admission: 07/17/20 Attend Phys: Albert Gómez Discharge: Date of : 43 Date of Service: 07/17/202105 Report #: [id number] THIS REPORT FOR: //name// [facility] ED Test Date: 2020-07-17 Test Time: 21:06:51 Pat Name: CHEPE COLON Department: Room: [facility] Gender: F Aquatic Scientist: [place] : 1945 Requested By: Kelvin Jackman Order Number: [id number] MD: Gasper Simmons Measurements Intervals [place] Rate: 77 P: -20 NC: 160 QRS: -14 QRSD: 99 T: 11 QT: 400 QTc: 453 Interpretive Statements Sinus rhythm Inferior infarct, old Baseline wander in lead(s) V4 Compared to ECG 04/23/2018 15:33:14 Myocardial infarct finding now present Electronically Signed On 07-18-2020 9:36:38 LAYOUT ARTIST by Gasper Simmons [email or web address] <ELECTRONICALLY SIGNED> By: Gasper Simmons MD, FACC 07/18/2036 05 05 Gasper Simmons MD, FACC /EPI
[2020-07-18 10:47] LABS: ALBUMIN 2.3 g/dL (3.4-5.0); CALCIUM 8.9 mg/dL (8.5-10.1); CREATININE 0.7 mg/dL (0.6-1.3); MAGNESIUM 2.2 mg/dL (1.8-2.4); PHOSPHORUS* 3.4 mg/dL (2.5-4.9); POTASSIUM 4.3 mmol/L (3.5-5.1); TOTAL BILIRUBIN 0.4 mg/dL (<0.1-1.0)
--- NOTE | 2020-07-18 18:05 | NUR ---
RECEIVED REPORT AND ASSUMED CARE OF PT.ADMISSION COMPLETED TO [facility].PT IS NONVERBAL BUT ABLE TO FOLLOW COMMANDS AT TIMES.VSS.IRRIGATING PUMP OPERATOR IN PLACE.ISOLATION MAINTAINED FOR COVID.NEW IV INSERTED IN LEFT FOREARM DUE TO PT PULLING OUT RIGHT HAND IV.WOUND PICTURES TAKEN AND PLACED ON CHART.PT PEG TUBE ARRIVED CLAMPED BUT WITHOUT CAPS, STOPCOCK ADDED TO PEG TUBE FOR MEDICATIONS ADMINISTRATION AND TUBE FEED BOLUSES.PT LEFT RSTING IN BED WITH CALL LIGHT AND FALL PRECAUTIONS IN PLACE.WILL CONTINUE TO MONITOR FOR DURATION OF SHIFT.
[2020-07-19 00:37] VITALS: BP 103/55
[2020-07-19 04:00] VITALS: BP 112/59
--- NOTE | 2020-07-19 04:35 | NUR ---
ASSUMED CARE OF PT AFTER REPORT. PT AWAKE. NONVERBAL. VSS. PHYSICAL ASSESSMENT COMPLETED AND CHARTED. PT ON O2 AT 2L NC. PT TRACING SR/ST/PAC ON TELE. PT TURNED TO SIDES. PT WITH PEG TUBE PATENT & INTACT. PT WITH SCHAEFER TO DD. MAINTAINED ON ENHANCED PRECAUTION-PENDING COVID PCR. FALL PRECAUTIONS IN PLACE. CALL LIGHT WITHIN REACH.
[2020-07-19 05:37] LABS: ABSOLUTE LYMPHOCYTES 1.1 thou/uL (0.8-5.3); ABSOLUTE MONOCYTES 0.8 thou/uL (0.0-1.2); ABSOLUTE NEUTROPHILS 5.4 thou/uL (1.6-8.1); BASOPHILS 0.5 %; EOSINOPHILS 0.1 %; HEMATOCRIT 38.1 % (37.0-47.0); HEMOGLOBIN 12.4 gm/dL (12.0-15.0); LYMPHOCYTES 15.1 %; MCHC 32.6 g/dL (28.0-37.0); MCV 88.7 fL (80.0-100.0); MPV 8.8 fl. (7.2-11.1); NUCLEATED RBCS 0 /100WBC; PLATELET COUNT* 262 thou/uL (150-400); POLYS 73.3 %; RBC 4.29 mil/uL (4.20-5.00); WBC 7.3 thou/uL (4.0-11.0)
[2020-07-19 05:56] LABS: CALCIUM 8.8 mg/dL (8.5-10.1); CREATININE 0.8 mg/dL (0.6-1.3); MAGNESIUM 2.1 mg/dL (1.8-2.4); POTASSIUM 3.5 mmol/L (3.5-5.1)
[2020-07-19 07:55] VITALS: BP 133/84
[2020-07-19 14:12] VITALS: BP 104/39
--- NOTE | 2020-07-19 14:20 | NUR ---
PATIENT TRANSFERRING TO [facility], MED/SURG STATUS. REPORT GIVEN TO JUNAID MCPHERSON.
--- NOTE | 2020-07-19 16:55 | NUR ---
REPORT RECIEVED FROM ИВАН MCPHERSON. I CONCUR WITH HER DOCUMENTATION. PT MOVED TO ROOM 311. FALL PRECAUTIONS IN PLACE. PT ON 2L NC. FAMILY NOTIFIED OF PT MOVING.
--- NOTE | 2020-07-19 17:48 | NUR ---
CM CONTACTED THE PT'S NIECE FLORES TO COMPLETE CM ASSESSMENT PT IS CURRENTLY UNDER ENHANCED PRECAUTIONS D/T BEING COVID POSITIVE. FLORES INFORMS THAT THE PT RESIDES AT [facility], AND THAT SHE HAS NOT SEEN HER SINCE THE BEGINING OF COVID. FLORES INFORMS THAT THE PLAN IS FOR THE PT TO RETURN TO [facility] AT D/C. CM SPOKE TO [facility] WITH ADMISSIONS AT [facility] AND SHE CONFIRMS THAT THE PT IS A LTC RESIDENT IN THE FACILITY AND IS WHEELCHAIR BOUND AND A ANTOINETTE LIFT. CM WILL REMAIN AVAILABLE TO ASSIST AND CHANTALE FOR D/C PLANNING. [facility] PHONE: [phone]
[2020-07-19 22:30] VITALS: BP 131/77
[2020-07-20 08:00] VITALS: BP 104/55
--- NOTE | 2020-07-20 08:03 | NUR ---
PATIENT HAS SLEPT MOST OF THE NIGHT. PATIENT NONVERBAL AND ONLY STARES OFF BUT IS ALERT. MEDICATIONS GIVEN ORDERED AND CHARTED. TUBE FEEDING RUNNING AT 50ML/HR. WATER FLUSH OF 200CC GIVEN. SCHAEFER TO DEPENDENT DRAINAGE WITH YELLOW URINE OUTPUT. VSS ON 2L 02 VIA NASAL CANNULA. IV IN LEFT FOREARM-SL. PATIENT REMAINS NPO. FALL PRECAUTIONS IN PLACE AND HOURLY ROUNDS MADE. WILL CONTINUE WITH PLAN OF CARE AND NURSING TO MONITOR.
--- NOTE | 2020-07-20 11:50 | NUR ---
ANGELICA/IWLLIAM VANN CALLED CM TO CHECK ON PT. SHE REQUESTED CLINICAL INFORMATION BE FAXED TO WILLIAM VANN ON PT. SHE SAID THEY HAD TALKED TO DPOA PREVIOUSLY ABOUT HOSPICE. SHE SAID SHE WAS ON BOARD AT THAT TIME. PT.HAS POSITIVE BLOOD CX. IV VANC ORDERED. FAXED H&P,PROGRESS NOTE,MED LIST,LABS,NEG COVID TO [phone].
[2020-07-20 16:00] VITALS: BP 107/66
--- NOTE | 2020-07-20 16:44 | NUR ---
PATIENT HAS CONT TUBE FEEDING INFUSING ORDERED, TOLERATING WITH MINIMAL RESIDUAL NOTED. TURNED Q2. DRESSING TO RIGHT CALF CHANGED. SCD'S AND PRAFO BOOTS IN PLACE. FREQUENT ORAL CARE GIVEN. IV REPLACED TO LEFT FA, VANC INFUSING ORDERED FOR POSITIVE BLOOD CULTURES. TYLENOL GIVEN THIS EVENING FOR LOW GRADE TEMP OF 100.0. 02 2L NC REMAINS IN PLACE. DR. HUERTA MADE AWARE OF PEG TUBE SITE, RED AND PURULENT DISCHARGE NOTED. BACTROBAN ORDERED AND STARTED. INCONTINENT OF BM X 2. SCHAEFER CONT TO DRAIN YELLOW URINE.
[2020-07-20 20:30] VITALS: BP 181/95
[2020-07-21 03:51] LABS: HEMATOCRIT 35.9 % (37.0-47.0); MCH 29.3 pg (26.0-34.0); MCHC 33.3 g/dL (28.0-37.0); MCV 87.9 fL (80.0-100.0); MPV 8.8 fl. (7.2-11.1); RBC 4.09 mil/uL (4.20-5.00); RDW-CV 14.9 % (10.5-14.5); WBC 6.8 thou/uL (4.0-11.0)
[2020-07-21 04:01] LABS: CALCIUM 8.4 mg/dL (8.5-10.1); CREATININE 0.7 mg/dL (0.6-1.3); MAGNESIUM 2.1 mg/dL (1.8-2.4); POTASSIUM 3.3 mmol/L (3.5-5.1)
--- NOTE | 2020-07-21 07:33 | NUR ---
Patient is unresponsive, nonverbal. Skin is intact but she has redness around pegtube which we putting antibiotic ointment on. She has O2 at 2L n/c, mouthcare has been done frequentlly. Meds given through pegtube. Vitals are stable. Derics slept well.
[2020-07-21 08:02] VITALS: BP 143/67
[2020-07-21 11:20] LABS: URINE BILIRUBIN NEGATIVE (Negative); URINE BLOOD 2+ (Negative); URINE CLARITY CLEAR; URINE COLOR YELLOW; URINE GLUCOSE-RANDOM NEGATIVE (Negative); URINE KETONES NEGATIVE (Negative); URINE LEUKOCYTES-REFLEX NEGATIVE (Negative); URINE NITRITE-REFLEX NEGATIVE (Negative); URINE PROTEIN NEGATIVE (Negative); URINE SPECIFIC GRAVITY 1.025 (1.005-1.030); URINE UROBILINOGEN 0.2 E.U./dl (0.2-1.0)
[2020-07-21 11:34] LABS: BACTERIA-REFLEX 1-9 Few /HPF (None Seen); RENAL EPITHELIAL CELLS 0-3 Few /LPF (None Seen); SQUAMOUS 0-3 Few /LPF (0-3); URINE RBC >20 Many /HPF (0-2); URINE WBC-REFLEX 0-5 Rare /HPF (0-5)
[2020-07-21 11:35] LABS: CALCIUM OXALATE 0-3 Few /LPF (None Seen); CASTS None Seen /LPF (None Seen); MUCUS None Seen strn/LPF (None Seen)
[2020-07-21 16:11] VITALS: BP 119/65
--- NOTE | 2020-07-21 16:51 | NUR ---
PT NONVERBAL. O2 2LNC. SCHAEFER CATHETER D/C'D PER ORDER. UA SENT. TUBE FEEDING INFUSING. RESIDUAL 10ML. INCONT OF B/B. PERICARE AND BED CHANGE PRN. PRAFO BOOTS BILATERAL FEET.
[2020-07-21 20:00] VITALS: BP 103/50
[2020-07-22 04:00] VITALS: BP 113/52
[2020-07-22 04:43] LABS: HEMATOCRIT 34.2 % (37.0-47.0); HEMOGLOBIN 11.4 gm/dL (12.0-15.0); MCH 29.2 pg (26.0-34.0); MCHC 33.5 g/dL (28.0-37.0); MCV 87.2 fL (80.0-100.0); MPV 9.2 fl. (7.2-11.1); RBC 3.92 mil/uL (4.20-5.00); RDW-CV 15.2 % (10.5-14.5); WBC 5.7 thou/uL (4.0-11.0)
[2020-07-22 04:45] LABS: CALCIUM 8.6 mg/dL (8.5-10.1); CREATININE 0.6 mg/dL (0.6-1.3); MAGNESIUM 2.1 mg/dL (1.8-2.4); POTASSIUM 3.4 mmol/L (3.5-5.1)
--- NOTE | 2020-07-22 04:59 | NUR ---
PT NONVERBAL, EYES CLOSED MOST OF THE TIME. ON 2L BY NC. AFEBILE. PT ON CONTINUOUS TUBE FEEDING, MEDS GIVEN ORDERED VIA PEG TUBE. INCONTINENT FOR BOWEL AND BLADDER. HOURLY ROUNDINGS, TURNS MADE. WILL CONTINUE TO MONITOR.
[2020-07-22 07:20] VITALS: BP 165/80
[2020-07-22] MEDS ORDERED: LEVOFLOXACIN500 MG PO (08:55)
[2020-07-22] MEDS ORDERED: DOXYCYCLINE 10100 MG PO (08:55)
--- NOTE | 2020-07-22 12:26 | NUR ---
PT CHART COPIED. REPORT CALLED TO FACILITY. AMBULANCE SET UP FOR TRANSPORTATION. FAMILY NOTIFIED. HOSPICE CALLED AND WILL SEE PATIENT AT [facility]. IV REMOVED. Q2 TURNS COMPLETED. PIC TAKEN OF WOUND. FALL RISK PRECAUTIONS IN PLACE. HOURLY ROUNDING COMPLETED. PT BELOGINGS GATHERED.
== END 2020-07-22 13:32 | DRG 177 ==
LOC: M.ERS 20:48 → M.TBA-ER 22:56 → M.2W 07-18 07:48 → M.3W 07-19 14:22
PROVIDERS: Emergency Medicine Emergency Medical Services; Internal Medicine; ADMIT Internal Medicine; ATTEND Internal Medicine
DX: J69.0 Pneumonitis due to inhalation of food and vomit (principal); J96.01 Acute respiratory failure with hypoxia; G92 Toxic encephalopathy; E43 Unspecified severe protein-calorie malnutrition; R53.2 Functional quadriplegia; D68.59 Other primary thrombophilia; E03.9 Hypothyroidism, unspecified; K21.9 Gastro-esophageal reflux disease without esophagitis; F03.90 Unspecified dementia, unspecified severity, without behavioral disturbance, psychotic disturbance, mood disturbance, and anxiety; I87.8 Other specified disorders of veins; M81.0 Age-related osteoporosis without current pathological fracture; I50.9 Heart failure, unspecified; G89.29 Other chronic pain; Z20.828 Contact with and (suspected) exposure to other viral communicable diseases; Z66 Do not resuscitate; Z09 Encounter for follow-up examination after completed treatment for conditions other than malignant neoplasm; Z86.19 Personal history of other infectious and parasitic diseases; Z86.718 Personal history of other venous thrombosis and embolism; Z79.82 Long term (current) use of aspirin; Z79.899 Other long term (current) drug therapy; Z88.2 Allergy status to sulfonamides; Z88.8 Allergy status to other drugs, medicaments and biological substances; Z91.040 Latex allergy status; Z68.33 Body mass index [BMI] 33.0-33.9, adult

== ENCOUNTER 2020-09-16 03:16 | Emergency (ER) | payer MEDICARE, MEDICAID ==
[~2020-09-16] VITALS: Ht 157.5 cm; Wt 86.2 kg
[~2020-09-16 03:16] MED LIST changes: +CIPRO500 M1 PER TUBE; +HYDROCODON-ACE1 EAC7; +JEVITY 1.2 CAL237 ML; +LEVOFLOXACIN500 MG PO; +OYSTER SHELL 51 EACH; +PREVACID30 MG; +VISTARIL 25 MG25 M1; +ZINC SULFATE220 MG
[2020-09-16] MEDS ORDERED: PANTOPRAZOLE SO40 M3 PO (03:40)
[2020-09-16 04:20] VITALS: BP 154/67
== END 2020-09-16 04:20 | disposition home or self-care (01) ==
LOC: M.ERS 03:16
DX: K94.29 Other complications of gastrostomy (principal); K21.9 Gastro-esophageal reflux disease without esophagitis; E03.9 Hypothyroidism, unspecified; G89.29 Other chronic pain; I50.9 Heart failure, unspecified; Z91.040 Latex allergy status; Z88.2 Allergy status to sulfonamides; Z91.012 Allergy to eggs; Z86.718 Personal history of other venous thrombosis and embolism; Z90.89 Acquired absence of other organs

== ENCOUNTER 2020-09-17 19:14 | Emergency (ER) | payer MEDICARE, MEDICAID ==
[~2020-09-17] VITALS: Ht 167.6 cm; Wt 81.7 kg
[~2020-09-17 19:14] MED LIST changes: +PANTOPRAZOLE SO40 M3 PO
[2020-09-17 20:56] VITALS: BP 120/58
== END 2020-09-17 20:58 | disposition home or self-care (01) ==
LOC: M.ERS 19:14
DX: K94.29 Other complications of gastrostomy (principal); I50.9 Heart failure, unspecified; E03.9 Hypothyroidism, unspecified; K21.9 Gastro-esophageal reflux disease without esophagitis; Z86.718 Personal history of other venous thrombosis and embolism; Z88.2 Allergy status to sulfonamides; Z91.040 Latex allergy status; Z88.8 Allergy status to other drugs, medicaments and biological substances; Z91.012 Allergy to eggs; Z90.89 Acquired absence of other organs

== ENCOUNTER 2020-10-15 06:21 | Emergency (ER) | payer MEDICARE, MEDICAID ==
[~2020-10-15] VITALS: Ht 160 cm; Wt 90.9 kg
[2020-10-15 08:49] VITALS: BP 127/80
== END 2020-10-15 08:51 | disposition still patient (30) ==
LOC: M.ERS 06:21
DX: K94.20 Gastrostomy complication, unspecified (principal); Z88.2 Allergy status to sulfonamides; Z91.040 Latex allergy status; Z91.012 Allergy to eggs; Z90.89 Acquired absence of other organs; E03.9 Hypothyroidism, unspecified; K21.9 Gastro-esophageal reflux disease without esophagitis; I50.9 Heart failure, unspecified; Z86.718 Personal history of other venous thrombosis and embolism; G89.29 Other chronic pain

== ENCOUNTER 2020-11-07 04:46 | Emergency (ER) | payer MEDICARE, MEDICAID ==
[~2020-11-07] VITALS: Ht 127 cm; Wt 56.2 kg
[2020-11-07 07:20] VITALS: BP 104/67
== END 2020-11-07 07:20 | disposition home or self-care (01) ==
LOC: M.ERS 04:46
DX: K94.29 Other complications of gastrostomy (principal); I50.9 Heart failure, unspecified; E03.9 Hypothyroidism, unspecified; K21.9 Gastro-esophageal reflux disease without esophagitis; G89.29 Other chronic pain; Z88.2 Allergy status to sulfonamides; Z91.040 Latex allergy status; Z91.012 Allergy to eggs; Z88.8 Allergy status to other drugs, medicaments and biological substances; Z90.89 Acquired absence of other organs; Z86.718 Personal history of other venous thrombosis and embolism